=== PATIENT | female | born 1945 | race Caucasian/White ===

== ENCOUNTER → 2018-07-09 | Outpatient (CLI) | payer OTHER | LOC: BMCIMAGING 09:48 | PROVIDERS: ATTEND Orthopaedic Surgery | DX: M23.92 Unspecified internal derangement of left knee (principal); M25.752 Osteophyte, left hip ==

== ENCOUNTER → 2018-08-05 | Outpatient (CLI) | payer OTHER | LOC: BMCIMAGING 08:38 | PROVIDERS: ATTEND Orthopaedic Surgery | DX: M25.552 Pain in left hip (principal); M25.562 Pain in left knee ==

== ENCOUNTER 2018-12-22 11:03 | Day surgery (SDC) | payer OTHER ==
--- NOTE | 2018-12-22 07:47 | PDGENHP ---
History and Physical History and Physical: CC: R forefoot pain HPI: 73 y/o with h/o progressive R forefoot pain and 1st MTP stiffness PMH:Increased cholesterol, Hypothyroid SH: previous smoker PSH: Thyroid, Orthopedic surgery Meds: Simvastatin, Levothyroxine All: NKDA PE: Head - Normocephalic, PERRL, EOMI Neck: supple Chest: CTA Heart: RRR Abd: S,NT, ND Ext: R 1st MTP with decreased ROM, tender to palpation Assessment: R hallux rigidus Plan: R 1st MTP implant hemiarthroplasty
[2018-12-22] MEDS ORDERED: ceFAZolin 2 GM/DEXTROSE 100 ML IV ONE (11:11)
[2018-12-22] MEDS ORDERED: LR 1,000 ML IV ONE (11:11)
[2018-12-22] MEDS ORDERED: BUPIVACAINE 0.5% 30 ML SDV ONE (12:12)
[2018-12-22] MEDS ORDERED: MIDAZOLAM 2 MG/2 ML VIAL IVP ONE (12:26)
[2018-12-22] MEDS ORDERED: MIDAZOLAM 2 MG/2 ML VIAL ONE (12:27)
[2018-12-22] MEDS ORDERED: fentaNYL 100 MCG/2 ML INJ ONE (12:31)
[2018-12-22] MEDS ORDERED: PROPOFOL 200 MG/20 ML VIAL ONE (12:31)
--- NOTE | 2018-12-22 12:31 | PDANEPAE ---
ANE Past Medical History - Cardiovascular History Hx Hypertension: No Hx Arrhythmias: No Hx Chest Pain: No Hx Coronary Artery / Peripheral Vascular Disease: No Hx CHF / Valvular Disease: No Hx Palpitations: No - Pulmonary History Hx COPD: No Hx Asthma/Reactive Airway Disease: No Hx Recent Upper Respiratory Infection: No Hx Oxygen in Use at Home: No Hx Sleep Apnea: No Sleep Apnea Screening Result - Last Documented: Negative - Neurologic History Hx Cerebrovascular Accident: No Hx Seizures: No Hx Dementia: No - Endocrine History Hx Diabetes: No - Renal History Hx Renal Disorders: No - Liver History Hx Hepatic Disorders: No - Neurological & Psychiatric Hx Hx Neurological and Psychiatric Disorders: No - Cancer History Hx Cancer: Yes Cancer History Comment: skin cancer - Congenital Disorder History Hx Congenital Disorders: No - GI History Hx Gastrointestinal Disorders: No - Other Health History Other Health History: bruises easily - Chronic Pain History Chronic Pain: No - Surgical History Prior Surgeries: arthoscopic surgery to both knees 2017 in last 5 yrs ANE Review of Systems Review of Systems: - Exercise capacity METS (RN): 6 METS ANE Patient History - Allergies Allergies/Adverse Reactions: No Known Allergies Allergy (Verified 12/09/18 09:17) - Home Medications Home Medications: Cholecalciferol (Vitamin D3) 12/09/18 [Last Taken 12/21/18] Coq10 12/09/18 [Last Taken 1 Week Ago ~12/15/18] Multivitamin 12/09/18 [Last Taken 12/22/18] [place]-3 12/09/18 [Last Taken 1 Week Ago ~12/15/18] Synthroid 12/09/18 [Last Taken 12/22/18] Zocor 12/09/18 [Last Taken 12/21/18] - NPO status NPO Since - Liquids (Date): 12/22/18 NPO Since - Liquids (Time): 09:00 NPO Since - Solids (Date): 12/21/18 NPO Since - Solids (Time): 19:00 - Smoking Hx Smoking Status: Former smoker - Family Anes Hx Family Hx Anesthesia Complications: none ANE Labs/Vital Signs - Vital Signs Blood Pressure: 136/93 Heart Rate: 65 Respiratory Rate: 16 O2 Sat (%): 96 Height: 167.64 cm Weight: 61.235 kg ANE Physical Exam - Airway Neck exam: FROM Mallampati Score: Class 2 Mouth exam: normal dental/mouth exam - Pulmonary Pulmonary: no respiratory distress - Cardiovascular Cardiovascular: regular rate and rhythym, no murmur, rub, or gallop - ASA Status ASA Status: II ANE Anesthesia Plan Anesthesia Plan: GA w LMA
[2018-12-22] MEDS ORDERED: DEXAMETHASONE 4 MG/ML VIAL ONE (12:43)
[2018-12-22] MEDS ORDERED: ePHEDrine SULFATE 25 MG/5 ML SYR ONE (12:47)
[2018-12-22] MEDS ORDERED: PHENYLEPHRINE HCL 100 MCG/ML SYR ONE (12:49)
[2018-12-22] MEDS ORDERED: ALBUTEROL 3 ML DEYVIAL IH PRN (13:01)
[2018-12-22] MEDS ORDERED: ACETAMINOPHEN 500 MG TAB PO PRN (13:01)
[2018-12-22] MEDS ORDERED: NALOXONE HCL 0.4 MG/ML INJ IVP PRN (13:01)
[2018-12-22] MEDS ORDERED: fentaNYL 100 MCG/2 ML INJ IVP PRN (13:01)
[2018-12-22] MEDS ORDERED: METOCLOPRAMIDE 10 MG/2 ML VIAL IVP PRN (13:01)
[2018-12-22] MEDS ORDERED: ONDANSETRON 4 MG/2 ML VIAL IVP PRN (13:01)
[2018-12-22] MEDS ORDERED: PROMETHAZINE HCL 25 MG/ML INJ IVP PRN (13:01)
[2018-12-22] MEDS ORDERED: HYDROmorphONE/DILAUDID 1 MG/ML INJ IVP PRN (13:01)
[2018-12-22] MEDS ORDERED: MEPERIDINE 25 MG/0.5 ML AMP IVP PRN (13:01)
[2018-12-22] MEDS ORDERED: oxyCODONE IR 5 MG TAB PO PRN (13:01)
[2018-12-22] MEDS ORDERED: LR 500 ML IV PRN (13:01)
[2018-12-22] MEDS ORDERED: HYDROCODONE/APAP 5/325 TAB PO PRN (13:01)
[2018-12-22] MEDS ORDERED: KETOROLAC 30 MG/1 ML SDV ONE (13:02)
[2018-12-22] MEDS ORDERED: ONDANSETRON 4 MG/2 ML VIAL ONE (13:03)
--- NOTE | 2018-12-22 13:18 | POSTOPPROG ---
Post Op Note Date of Operation: 12/22/18 Surgeon: Reginald Gabriel Anesthesia: LMA Pre-op Diagnosis: R hallux rigidus Post-op Diagnosis: same Procedure: R 1st MTP cheilectomy/debridement, implant hemiarthroplasty Inf/Abcess present in the surg proc area at time of surgery?: No EBL: Minimal
--- NOTE | 2018-12-22 13:47 | GOP ---
[f rep st] OPERATIVE REPORT DATE OF OPERATION: 12/22/2018 SURGEON: Reginald Gabriel MD ANESTHESIA: LMA, general. PREOPERATIVE DIAGNOSIS: Right hallux rigidus. POSTOPERATIVE DIAGNOSIS: Right hallux rigidus. PROCEDURE PERFORMED: 1. Right 1st MTP cheilectomy and debridement. 2. Right 1st MTP implant hemiarthroplasty. FINDINGS: ESTIMATED BLOOD LOSS: Minimal. INDICATIONS: Patient is a 73-year-old with history of progressive 1st MTP pain. Clinically and radi ographically, she is noted to have advanced hallux rigidus. Based on her persistence of symptoms, re fractory nonoperative treatment, she is interested in pursuing operative treatment. From an operativ e standpoint, after thorough discussion with the patient regarding operative options, including arthr odesis and implant hemiarthroplasty, the patient elected to pursue implant hemiarthroplasty. The pat ient acknowledged she understood the potential risks of the operation, including, but not limited to bleeding, infection, neurovascular damage, loss of limb or limb function, implant failure requiring r emoval, revision, or arthrodesis, pain or limitations, and anesthetic risks. She acknowledged she un derstood the potential risks, planned procedure, and postoperative plan well, and had all questions a nswered prior to surgery. She gave her consent for the operative procedure. DESCRIPTION OF PROCEDURE: The patient was brought to the OR after IV antibiotics were administered. She was placed in a supine position and general anesthetic by LMA was administered. Tourniquet was placed on the right calf and right lower leg was prepped and draped in standard sterile fashion. Aft er marking the incision, Rene wrap exsanguination, the tourniquet was inflated to 250. A longitudinal incision was made along the dorsal aspect of the 1st MTP joint. Skin and subcutaneous tissue were sharply incised. Sharp dissection was carried adjacent to the extensor hallucis longus tendon. The joint capsule was longitudinally incised and reflected medially and laterally. Prominen t osteophytes on the metatarsal head and proximal phalanx were removed with a saw and rongeurs. Adva nced degenerative changes were noted. A guide pin from the Cartiva implant was placed in the central aspect of the metatarsal head. Based on intraoperative templating, a 10 mm reamer was utilized to c reate a trough for implant placement. A 10 mm tree Cartiva implant was impacted into place remaining several millimeters proud. Prior to doing this, the toe was taken through range of motion and any p lantar adherence was manually broken up to allow for full range of motion. After placement of the im plant, the toe was taken through range of motion, found to have full motion without any evidence of i mpingement. Attention was directed towards closure. The extensor retinaculum was closed with 2-0 Vicryl suture i n interrupted fashion. Subcutaneous tissue closed with 3-0 Vicryl suture fashion. Skin closed with 4-0 nylon interrupted sutures. 0.5% Marcaine without epinephrine was injected in the wound site, as well as in the vicinity of the tibial and deep peroneal nerves. Wounds were dressed with sterile Ada ptic, 4 x 4, Kerlix and Coban. The patient is taken to the recovery room, extubated in stable condit ion postoperatively. All sponge, needle, and instrument counts were reported as being correct. DRAINS: None. COMPLICATIONS: None. PLAN: The patient will be discharged home weightbearing as tolerated in the postop shoe. /[id number]/MODL
[2018-12-22 14:53] VITALS: BP 135/93
--- NOTE | 2018-12-23 13:36 | POSTANESTH ---
Post Anesthetic Evaluation Cardiovascular Status: Normal, Stable Respiratory Status: Normal, Stable Level of Consciousness/Mental Status: Can Participate in Eval Pain Control: Adequate, Prn Tx Ordered Nausea/Vomiting Control: Adequate, Prn Tx Ordered Complications Possibly Related to Anesthesia: None Noted
== END 2018-12-22 14:40 | disposition home or self-care (01) ==
LOC: FSGY 11:03
PROVIDERS: ATTEND Orthopaedic Surgery Foot and Ankle Surgery
PROC: 0SRM0JZ Replacement of Right Metatarsal-Phalangeal Joint with Synthetic Substitute, Open Approach (ICD-10-PCS; principal; 2018-12-22 12:45)
DX: M20.22 Hallux rigidus, left foot (principal); E03.9 Hypothyroidism, unspecified; Z87.891 Personal history of nicotine dependence; Z85.828 Personal history of other malignant neoplasm of skin
CPT/HCPCS: J0690; J1100; J1885; J2250; J2370; J2405; J2704; J3010

== ENCOUNTER → 2019-01-20 | Outpatient (CLI) | payer OTHER | LOC: BMCIMAGING 13:12 | PROVIDERS: ATTEND Orthopaedic Surgery | DX: M16.12 Unilateral primary osteoarthritis, left hip (principal) ==